=== PATIENT | female | born 1995 | race Caucasian/White ===

== ENCOUNTER 2024-06-06 16:51 | Emergency (ER) | payer OTHER, SELFPAY ==
[2024-06-06 16:53] VITALS: BP 124/77
--- NOTE | 2024-06-06 17:11 | ED.GENMED ---
Addendum entered and electronically signed by Lalit Turner PA-C 06/09/24 07:27:
Urine culture shows greater than 100,000 colony-forming units of presumptive E. coli. On Bactrim. Sensitivities pending
Original Note:
History of Present Illness
<Trina Greene PA-C - Last Filed: 06/06/24 20:44>
General
Chief Complaint: Flank Pain
Source: patient
Exam Limitations: none
Time Seen by Provider: 06/06/24 17:05
Nursing documentation reviewed up to this point in time: agreed with
History of Present Illness
History of Present Illness:
29-year-old female with history of kidney stones presenting with acute onset left flank pain last night. Patient states she was sitting on the couch around 9 PM when she had acute onset pain in her left flank rating around to her left abdomen.
Pain has been relatively constant since although there have been waves of sharper, more severe pain. She has noticed increased urinary frequency, as well. She does feel pain is worse when lying on her left side and when taking a deep breath. No
current dysuria, hematuria, nausea/vomiting, fever/chills. No changes in bowel habits. No chest pain or shortness of breath
Of note�about a month ago patient states she was having some dysuria and urinary frequency and thought she may be getting UTI. She was seen in urgent care that time her urine was negative for infection.
No recent travel or recent surgeries. No exogenous hormone use. No personal or family history of blood clots or clotting disorders.
Review of Systems
<Trina Greene PA-C - Last Filed: 06/06/24 20:44>
Review of Systems
Allergies reviewed?: Yes
All Other Systems: ROS reviewed and negative except as documented in HPI and ROS
Phy Exam
<Trina Greene PA-C - Last Filed: 06/06/24 20:44>
Physical Exam
Physical Exam:
Vitals: Patient's vital signs are stable. Afebrile
General: Patient is well appearing, no acute distress. Nontoxic appearing
Skin: Warm and dry, no rashes or lesions
Head: Normocephalic, atraumatic
Eyes: Sclera nonicteric. EOMs intact. No nystagmus.
Throat: Protecting airway
Neck: Normal ROM, no cervical spine tenderness, no meningismus
Cardiac: Regular rate and rhythm, no murmurs.
Pulm: Normal respiratory effort, no wheezes, rales, rhonchi heard on exam.
Abdomen: Abdomen soft. Mild left mid abdominal/flank pain. No rebound tenderness or guarding. No CVA tenderness. No rash.
Extremities: No evidence of cyanosis or edema. Negative Homans' sign bilaterally. Palpable DP pulses bilaterally
Neuro: AAOx3. Grossly intact.
Psychiatric: Normal affect.
Scores
<Trina Greene PA-C - Last Filed: 06/06/24 20:44>
PERC Rule Criteria
Age <50 years: Yes
HR <100 bpm: Yes
Room air oxygen sat >94%: Yes
History of DVT or PE: No
Recent trauma or surgery: No
Hemoptysis: No
Exogenous estrogen: No
Clinical signs suggestive of DVT: No
: No
Considered low risk for PE: Yes
PERC Score: 0
PE can be excluded by PERC: Yes
<Ramon Lozoya DO - Last Filed: 06/06/24 22:03>
PERC Rule Criteria
PERC Score: 0
PE can be excluded by PERC: Yes
Course
<Trina Greene PA-C - Last Filed: 06/06/24 20:44>
Orders/Labs/Results
Orders:
Orders
06/06/24 17:32
Abdomen/Pelvis wo Contrast CT [CT Abd/pelvis Wo Iv Cont] Urgent
Comment: hx kidney stones
Reason For Exam: L flank pain
06/06/24 17:33
Test Result ONCE
06/06/24 17:36
Complete Blood Count/With Diff Urgent
Comprehensive Metabolic Panel Urgent
HCG, Serum Qualitative Screen Urgent
Urinalysis Reflex To Culture Urgent
Date Specimen was Collected: 06/06/24
Time Specimen was Collected: 17:34
Urine Microscopic Reflex Cult Urgent
Urine Culture Urgent
ANGEL Source: U
Specimen Description:
Date Specimen was Collected: 06/06/24
Time Specimen was Collected: 17:34
06/06/24 17:40
Ketorolac [Toradol] 15 mg IV NOW STA
06/06/24 17:45
0.9% Sodium Chloride 1000 ml [Nss] 1,000 ml IV BOLUS
06/06/24 18:44
CefTRIAXone [Rocephin] 1,000 mg IV NOW STA
Abnormal Lab Results
06/06/24
17:36
WBC 14.6 H 10^3/uL
(4.8-10.8)
RBC 4.01 L 10^6/uL
(4.20-5.40)
Hgb 11.6 L g/dL
(12.0-16.0)
Hct 35.2 L %
(37.0-47.0)
Absolute Neuts (auto) 7.1 H 10^3/uL
(1.4-6.5)
Absolute Lymphs (auto) 4.8 H 10^3/uL
(1.2-3.4)
Absolute Monos (auto) 2.3 H 10^3/uL
(0.1-0.6)
Monocytes % 15.4 H %
(1.7-9.3)
Creatinine 0.5 L mg/dL
(0.6-1.0)
Glucose 104 H mg/dl
(70-99)
Ur Occult Blood Reflex 1+ A
(Negative)
Leukocyte Esterase Rfl 2+ A
(Negative)
Urine RBC 7-10 A /HPF
(0-2)
Urine WBC (Reflex) 40-50 A /HPF
(0-5)
Urine Bacteria (Reflex) Moderate A
(Negative)
06/06/24 17:36
06/06/24 17:36
Vital Signs
Initial and Last Documented VS:
Initial Vital Signs
Temp Pulse Resp BP Pulse Ox
98.1 F 96 18 124/77 98
06/06/24 16:53 06/06/24 16:53 06/06/24 16:53 06/06/24 16:53 06/06/24 16:53
Last Documented Vital Signs
Temp Pulse Resp BP Pulse Ox
98.1 F 96 18 118/72 98
06/06/24 16:53 06/06/24 16:53 06/06/24 16:53 06/06/24 17:42 06/06/24 17:45
Nayalt;Ramon Lozoya, DO - Last Filed: 06/06/24 22:03>
Orders/Labs/Results
Orders:
Orders
06/06/24 17:32
Abdomen/Pelvis wo Contrast CT [CT Abd/pelvis Wo Iv Cont] Urgent
Comment: hx kidney stones
Reason For Exam: L flank pain
06/06/24 17:33
Test Result ONCE
06/06/24 17:36
Complete Blood Count/With Diff Urgent
Comprehensive Metabolic Panel Urgent
HCG, Serum Qualitative Screen Urgent
Urinalysis Reflex To Culture Urgent
Date Specimen was Collected: 06/06/24
Time Specimen was Collected: 17:34
Urine Microscopic Reflex Cult Urgent
Urine Culture Urgent
ANGEL Source: U
Specimen Description:
Date Specimen was Collected: 06/06/24
Time Specimen was Collected: 17:34
06/06/24 17:40
Ketorolac [Toradol] 15 mg IV NOW STA
06/06/24 17:45
0.9% Sodium Chloride 1000 ml [Nss] 1,000 ml IV BOLUS
06/06/24 18:44
CefTRIAXone [Rocephin] 1,000 mg IV NOW STA
Abnormal Lab Results
06/06/24
17:36
WBC 14.6 H 10^3/uL
(4.8-10.8)
RBC 4.01 L 10^6/uL
(4.20-5.40)
Hgb 11.6 L g/dL
(12.0-16.0)
Hct 35.2 L %
(37.0-47.0)
Absolute Neuts (auto) 7.1 H 10^3/uL
(1.4-6.5)
Absolute Lymphs (auto) 4.8 H 10^3/uL
(1.2-3.4)
Absolute Monos (auto) 2.3 H 10^3/uL
(0.1-0.6)
Monocytes % 15.4 H %
(1.7-9.3)
Creatinine 0.5 L mg/dL
(0.6-1.0)
Glucose 104 H mg/dl
(70-99)
Ur Occult Blood Reflex 1+ A
(Negative)
Leukocyte Esterase Rfl 2+ A
(Negative)
Urine RBC 7-10 A /HPF
(0-2)
Urine WBC (Reflex) 40-50 A /HPF
(0-5)
Urine Bacteria (Reflex) Moderate A
(Negative)
06/06/24 17:36
06/06/24 17:36
Vital Signs
Initial and Last Documented VS:
Initial Vital Signs
Temp Pulse Resp BP Pulse Ox
98.1 F 96 18 124/77 98
06/06/24 16:53 06/06/24 16:53 06/06/24 16:53 06/06/24 16:53 06/06/24 16:53
Last Documented Vital Signs
Temp Pulse Resp BP Pulse Ox
98.1 F 96 18 118/72 98
06/06/24 16:53 06/06/24 16:53 06/06/24 16:53 06/06/24 17:42 06/06/24 17:45
<Trina Greene PA-C - Last Filed: 06/06/24 20:44>
MDM/Problems Addressed
Differential Diagnosis Includes:
Not limited to: Ureterolithiasis, UTI, pyelonephritis, diverticulitis, constipation, muscle strain, zoster, etc.
MDM/Problems Addressed:
29-year-old female with history as documented presenting with acute onset left flank pain. Did have history of dysuria a few weeks prior which have resolved. No fever, chills, nausea/vomiting. No chest pain or shortness of breath. Vital
stable�patient is afebrile. On exam�patient is well-appearing, in no apparent distress. Her abdomen is soft with mild reproducible left mid flank tenderness. No rebound tenderness or guarding. No true CVA tenderness. No ecchymoses. No rash to
suggest zoster. No clinical evidence of DVT on exam. Differential somewhat broad although considerations include kidney stone versus UTI versus pyelonephritis versus diverticulitis versus muscle strain, etc. patient has no PE risk factors and is
PERC negative. Do not suspect PE. Will check labs, urine, noncontrast CT abdomen/pelvis to look for kidney stone. Will give fluids and Toradol. Will closely monitor and reassess
Chronic conditions affecting care:
Nephrolithiasis
Acute Exacerbation and/or Progression of Chronic Illness:
N/A
<Trina Greene PA-C - Last Filed: 06/06/24 20:44>
*Radiology
Radiology exam reviewed: radiology read reviewed
*Pulse Oximetry
Patient hypoxic: no
*EKG
Interpreted by ED Provider?: NA
*Track Inspecting Supervisor Interpretation
Rate: Track Inspecting Supervisor- N/A
*Critical Care Note
Total Time (30-74mins, 75-104mins- exclusive of procedures): Not Applicable
<Trina Greene PA-C - Last Filed: 06/06/24 20:44>
Update Note
Update Note:
Update: Labs noted. Leukocytosis of 14.6. Chemistry without any clinically significant abnormalities. No renal insufficiency noted. Urine appears infected with 50 WBCs and 7-10 RBCs with 2+ leukocyte esterase. Culture will be sent. CT
abdomen/pelvis pending.
Update: CT shows no obstructing stones. No other acute findings on CT scan. Into reassess patient at bedside who did have some improvement following Toradol. Given infected urine and left flank discomfort�will treat patient for pyelonephritis.
History of splenectomy noted. However�patient is afebrile and very well-appearing clinically�feel she is fit for outpatient management. Lengthy discussion with patient regarding return precaution including any fever, chills, vomiting, any signs of
worsening infection. Will give dose of IV Rocephin in emergency department and discharge patient on 10-day course of Bactrim. Patient will follow-up with primary care. Patient seen with attending physician.
ED Attending Note
<Trina Greene PA-C - Last Filed: 06/06/24 20:44>
-
Portions of this chart may have been created with voice recognition software.� Occasional wrong word or��sound alike� substitutions may have occurred due to the inherent limitations of voice recognition software.
<Ramno Lozoya DO - Last Filed: 06/06/24 22:03>
ED Attending Note
Patient seen and examined by attending physician: Yes
I performed the substantive portion of visit, reviewed & personally made and approve the management plan that is documented in note by myself or BRYAN.: Yes
ED Attending Note:
29-year-old female presents with flank pain. Has had some urinary symptoms over the recent past but no fevers. 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 Denies vomiting. Denies shortness of breath. Exam: Awake and alert, no respiratory
distress. See above. Assessment and plan: Anything it is reasonable to treat as a pyelonephritis. CT grossly negative. No clinical concern for capsulated organisms. Her vaccines are up-to-date. Counseled on reasons for return. She agrees
Discharge Plan
Departure
Patient Disposition: Home (Routine Discharge)
Date of Disposition: 06/06/24
Time of Disposition: 19:09
Patient with high blood pressure during this ER visit?: No
Condition: Good
Covid-19: Not Applicable
Discharge Problem:
Pyelonephritis
Instructions: Flank Pain (DC), Urinary Tract Infection, Adult ED
Prescriptions:
New
sulfamethoxazole-trimethoprim [Bactrim DS] 800-160 mg tablet
1 tab PO BID 10 Days Qty: 20 0RF
Referrals:
Henry Rodrigues MD [Family Provider] - Follow up in 2-3 days
Activity Restrictions/Additional Instructions:
RETURN TO THE EMERGENCY DEPARTMENT WITH ANY FEVERS, CHILLS, WORSENING/SEVERE ABDOMINAL OR BACK PAIN, INTRACTABLE NAUSEA/VOMITING, DIFFICULTY URINATING, WORSENING IN CURRENT SYMPTOMS, OR ANY OTHER CONCERNS
-As discussed�your CT scan did not show any evidence of obstructing kidney stones. However�it does appear that you have a urinary tract infection/kidney infection.
-You were given a dose of IV antibiotics in the emergency department. A prescription has been sent for oral antibiotics you should take twice a day for the next 10 days. You can start this tomorrow morning. Stay well-hydrated
-You should follow-up with your primary care within the week to ensure symptoms are improving/for further evaluation
Monitor your symptoms closely and return to the emergency department with any acute worsening/new symptoms or any signs of worsening infection
Interventions
Interventions:
*Risk Screen - Suicide Last Done: 06/06/24 16:53
*General Assessment Last Done: 06/06/24 16:53
*Neglect/Abuse Screening Last Done: 06/06/24 17:25
ED- Fall Risk Assessment Last Done: 06/06/24 17:26
*ED COVID-19 Vaccine History Last Done: 06/06/24 16:53
*Nursing Disposition Last Done: 06/06/24 19:25
AJ-Bfsctw-Clrsjvpqjr Assessment Last Done: 06/06/24 17:27
ED-Female Genitourinary Assessment Last Done: 06/06/24 17:26
Discharge Date and Time
Discharge Date/Time: 06/06/24 19:26
Print Language: WOLOF
[2024-06-06 17:35] VITALS: BMI 23.0
[2024-06-06] MEDS: TORADOL 15 MG IV (17:41)
[2024-06-06] MEDS: NSS 1000 IV (17:41)
[2024-06-06 17:42] VITALS: BP 118/72
[2024-06-06 17:48] LABS: % Basophils 0.7 % (0-2); % Eosinophils 1.6 % (0-6); % Immature Granulocytes 0.2 % (0-0.5); % Lymphocytes 33.2 % (20.5-51.1); % Monocytes 15.4 % (1.7-9.3); % Neutrophils 48.9 % (42.2-75.2); Absolute Basophils 0.1 10^3/uL (0-0.2); Absolute Eosinophils 0.2 10^3/uL (0-0.7); Absolute Lymphocytes 4.8 10^3/uL (1.2-3.4); Absolute Monocytes 2.3 10^3/uL (0.1-0.6); Absolute Neutrophils 7.1 10^3/uL (1.4-6.5); Hematocrit 35.2 % (37.0-47.0); Hemoglobin 11.6 g/dL (12.0-16.0); Mean Corpuscular Hgb 28.9 pg (27.0-31.0); Mean Corpuscular Volume 87.8 fL (81.0-99.0); Mean Platelet Volume 9.1 fL (7.4-10.4); Nucleated Red Blood Cells % 0 %; Platelet Count 390 10^3/uL (130-400); Red Blood Cell Count 4.01 10^6/uL (4.20-5.40); Red Cell Dist. Width 14.4 % (11.5-14.5); White Blood Cell Count 14.6 10^3/uL (4.8-10.8)
[2024-06-06 17:49] LABS: Urine Albumin Trace (Neg - Trace); Urine Bilirubin Negative (Negative); Urine Character Slightly Cloudy (Clear); Urine Color Yellow; Urine Glucose Negative (Negative); Urine Ketone Negative (Negative); Urine Leukocyte 2+ (Negative); Urine Nitrite Negative (Negative); Urine Occult Blood 1+ (Negative); Urine Urobilinogen Negative (Neg - 1+)
[2024-06-06 17:57] LABS: HCG, Serum Qualitative Screen Negative
[2024-06-06 18:02] LABS: ALT (SGPT) 12 U/L (0-35); AST (SGOT) 16 U/L (14-36); Albumin 4.2 g/dl (3.5-5.0); Alkaline Phosphatase 59 U/L (38-126); Blood Urea Nitrogen 13 mg/dl (7-17); Calcium 9.3 mg/dl (8.4-10.2); Carbon Dioxide 27 mmol/L (22-30); Chloride 103 mmol/L (98-107); Estimated Creatinine Clearance 113 ml/min; Glucose 104 mg/dl (70-99); Sodium 139 mmol/L (135-145); Total Bilirubin 0.3 mg/dl (0.2-1.3); Total Protein 6.8 g/dl (6.3-8.2); eGFR > 60.00
[2024-06-06 18:16] LABS: Urine Mucus Moderate
[2024-06-06 18:17] LABS: Urine Hyaline Cast 0-2 /LPF (0-2)
[2024-06-06 18:18] LABS: Urine Bacteria Moderate (Negative); Urine White Cell 40-50 /HPF (0-5)
[2024-06-06] MEDS: ROCEPHIN 1000 MG IV (19:13)
== END 2024-06-06 19:26 | disposition home or self-care (01) ==
LOC: EMR 16:51
PROVIDERS: Physician Assistant; EMERGENCY PHYSICIAN Emergency Medicine; FAMILY PHYSICIAN Family Medicine
DX: N10 Acute pyelonephritis (principal); R10.9 Unspecified abdominal pain; R35.0 Frequency of micturition; Z90.81 Acquired absence of spleen; Z87.442 Personal history of urinary calculi
CPT/HCPCS: 99284; 96374; 96375; 96361; 74176; 80053; 81003; 81015; 84703; 85025; 87077; 87086